=== PATIENT | female | born 1960 | race Caucasian/White ===

== ENCOUNTER 2017-11-10 11:58 | Emergency (ER) | payer MEDICAID ==
--- NOTE | 2017-11-10 12:22 | ED Physician Chart ---
ED Chief Complaint/HPI - Patient Information Date Seen:: 11/10/17 Time Seen:: 12:00 Chief Complaint:: Left Ankle Pain History of Present Illness:: onset x one week of dull, MS type Left Ankle/Left Foot Pain after a twisting type injury 7 days [employer]; pt denies trauma, H/As, LOC, ALOC, AMS, neck pain, visual or gait changes, C/P, SOB, Abd. pain, weakness, dizziness, paresthesias, vertigo, A/N/V/D/C, fever, chills, or urinary s/s; pt's last tetanus shot: < 5 years; UTD; LNMP: pt is 8 years post-menopausal; pt denies Vitals:: Vital Signs - 8 hr 11/10/17 12:03 Temp 97.5 F HR 68 RR 18 BP 127/72 O2 Sat % 99 Historian:: Patient Review:: Nurse's Note Reviewed ED Review of Systems - Review of Systems General/Constitutional: No fever, No chills, No weight loss, No weakness, No diaphoresis, No edema, No loss of appetite Skin: No skin lesions, No rash, No bruising Head: No headache, No light-headedness Eyes: No loss of vision, No pain, No diplopia ENT: No earache, No nasal drainage, No sore throat, No tinnitus Neck: No neck pain, No swelling, No thyromegaly, No stiffness, No mass noted Cardio Vascular: No chest pain, No palpitations, No PND, No orthopnea, No edema Pulmonary: No SOB, No cough, No sputum, No wheezing GI: No nausea, No vomiting, No diarrhea, No pain, No melena, No hematochezia, No constipation, No hematemesis G/U: No dysuria, No frequency, No hematuria, No nacturia Hood Fitter: No vaginal discharge, No abnormal vaginal bleed, No contraction Musculoskeletal: Bone or joint pain, No back pain, Muscle pain Endocrine: No polyuria, No polydipsia Psychiatric: No prior psych history, No depression, No anxiety, No suicidal ideation, No homicidal ideation, No auditory hallucination, No visual hallucination Hematopoietic: No bruising, No lymphadenopathy Allergic/Immuno: No urticaria, No angioedema Neurological: No syncope, No focal symptoms, No weakness, No paresthesia, No headache, No seizure, No dizziness, No confusion, No vertigo ED Past Medical History - Past Medical History Obtainable: Yes Past Medical History: Thyroid disorder Family History: Cancer Social History: Non Smoker, No Alcohol, No Drug Use, Surgical History: None Psychiatricy History: None Medication: Reviewed Family Medical History - Family Member Father Hx Family Cancer: Yes (Prostate and Skin) Brother Hx Family Cancer: Yes (Brain) ED Physical Exam - Physical Examination General/Constitutional: Awake, Well-developed, well-nourished, Alert, No distress, GCS 15, Non-toxic appearing, Ambulatory Head: Atraumatic Eyes: Lids, conjuctiva normal, PERRL, EOMI Skin: Nl inspection, No rash, No skin lesions, No ecchymosis, Well hydrated, No lymphadenopathy ENMT: External ears, nose nl, TM canals nl, Nasal exam nl, Lips, teeth, gums nl , Oropharynx nl, Tonsils nl Neck: Nontender, Full ROM w/o pain, No JVD, No nuchal rigidity, No bruit, No mass, No stridor Other Neck comments:: supple; no meningeal signs; no cervical tenderness; no bruits Respiratory: Nl effort/Exclusion, Clear to Auscultation, No Wheeze/Rhonchi/Rales Cardio Vascular: RRR, No murmur, gallop, rubs, NL S1 S2, Carotid/Femoral/Distal pulses equal bilaterally GI: No tenderness/rebounding/guarding, No organomegaly, No hernia, Normal BS's, Nondistended, No mass/bruits, No McBurney tenderness, Rectum exam nl Other GI comments:: no pulsatile masses : No CVA tenderness Extremities: No tenderness or effusion, Full ROM, normal strength in all extremities, No edema, Normal digits & nails Other Extremities comments:: Left Ankle and Left Foot tenderness upon PROMs; no loss of ROMs; no ligament instability; no cellulitis; no septic joints; Gait: WNL; good motor, tendon, and sensory functions; good NV functions Neuro/Psych: Alert/oriented, DTR's symmetric, Normal sensory exam, Normal motor strength, Judgement/insight normal, Mood normal, Normal gait, No focal deficits Misc: Normal back, No paraspinal tenderness ED Labs/Radiology/EKG Results - Lab Results Comments:: UCG: Negative - Radiology Results Comments:: No Fx/Dislocations; NAD ED Septic Shock - . Is Septic Shock (SBP<90, OR Lactate>4 mmol\L) present?: No - <6hrs of presentation: Vital Signs: Vital Signs - 8 hr 11/10/17 12:03 Temp 97.5 F HR 68 RR 18 BP 127/72 O2 Sat % 99 ED Reassessment (Disposition) - Reassessment Reassessment:: pt is asymptomatic upon discharge Reassessment Condition:: Improved - Diagnosis Diagnosis:: Left Ankle Pain; Left Foot Pain; Left Ankle/Foot Injury; Left Ankle Sprains and Strains; Left Foot Sprains and Strains; Sprains and Strains - Aftercare/Follow up Instructions Aftercare/Follow-Up Instructions:: Counseled pt regarding lab results/diagnosis & need follow up, Refer to Discharge Instructions, Counseled pt & family regarding lab results/diagnosis & need follow up - Patient Disposition Discharge/Transfer:: Home Condition at Disposition:: Stable, Improved (RTER prn if existing s/s reoccur and/or get worse and/or any other new s/s occur; ACIs given for all above Dx; X- Rays Instructions; Refer to Orthopedist/Sock Knitting Machine Operator GILDA; F/U with PMD in one day or prn; RTER prn if concerned)
--- NOTE | 2017-11-10 12:51 | Diagnostic Imaging Report ---
Left ankle 3 views Indication: Trauma Comparison: Left foot x-ray the same day Findings: There is small calcification seen along the medial malleolus region likely a small osteophyte. Otherwise no evidence of acute fracture or dislocation. There is soft tissue swelling surrounding the ankle greatest medially. Impression: Small calcification along the medial malleolus, probably a small osteophyte. Otherwise no evidence of an acute fracture or dislocation. Soft tissue swelling surrounding the ankle greatest medially. In the setting of trauma, if clinical symptoms persist and there is continued concern for an occult fracture, follow up exams in 5-7 days is suggested.
--- NOTE | 2017-11-10 12:52 | Diagnostic Imaging Report ---
Left foot 3 views Indication: Trauma Comparison: Left ankle x-rays the same day Findings: There is a small plantar calcaneal spur. Mild degenerative changes are noted. No evidence of an acute fracture. Mild generalized soft tissue prominence is noted. Dislocation Impression: No evidence of an acute fracture. Mild generalized soft tissue prominence, correlate clinically. Small plantar calcaneal spur. In the setting of trauma, if clinical symptoms persist and there is continued concern for an occult fracture, follow up exams in 5-7 days is suggested.
== END 2017-11-10 13:22 | disposition home or self-care (01) ==
LOC: ER 11:58
DX: S93.402A Sprain of unspecified ligament of left ankle, initial encounter (principal); S96.912A Strain of unspecified muscle and tendon at ankle and foot level, left foot, initial encounter; S93.602A Unspecified sprain of left foot, initial encounter; E07.9 Disorder of thyroid, unspecified; X50.1XXA Overexertion from prolonged static or awkward postures, initial encounter; Y93.89 Activity, other specified; Y92.89 Other specified places as the place of occurrence of the external cause; Y99.8 Other external cause status
CPT/HCPCS: 73610-TC; 73630-TC-LT; 81025-TC; Z7502